=== PATIENT | female | born 1960 | race Caucasian/White ===

== ENCOUNTER 2019-02-01 19:10 | Emergency (ER) | payer BC ==
[~2019-02-01] VITALS: Ht 170.2 cm; Wt 92.1 kg
[~2019-02-01 19:10] MED LIST: ALPR.5 PO; ALPR1 PO; CYCL10 PO; GLIP2.5ER PO; HYDACE10B PO; HYDACE5 PO; JOINT HEALTH T1 EACH; KRILL OIL 1,001 EAC1 PO; LORA1 PO; METF500C PO; METO100ER PO; NAPR500EC PO; Norco 10-325 T1 EACH PO; QUIN10; RXPROACE PO; SERT50 PO; Simvastatin20 MG PO; Vitamin D400 UNI1
== END 2019-02-01 20:55 | disposition home or self-care (01) ==
LOC: ER 19:10
DX: S93.402A Sprain of unspecified ligament of left ankle, initial encounter (principal); G43.909 Migraine, unspecified, not intractable, without status migrainosus; Z88.5 Allergy status to narcotic agent; Z79.899 Other long term (current) drug therapy; Z79.84 Long term (current) use of oral hypoglycemic drugs; W18.30XA Fall on same level, unspecified, initial encounter
CPT/HCPCS: 29125; 73610; 73630; 99283-25; L1906

== ENCOUNTER → 2023-02-06 | Outpatient (CLI) | payer BC ==
[~2023-02-06] MED LIST changes: +FENO160 PO; +LEVSOD25 PO; +ONDA4 PO; +PIOG30 PO; +TRULICITY1.5 MG/0.5 SC
[2023-02-06 13:40] LABS: BASOPHILS ABSOLUTE AUTO 0.01 K/mm3 (0.00-0.23); BASOPHILS PERCENT AUTO 0 % (0-2); EOSINOPHILS ABSOLUTE AUTO 0.06 K/mm3 (0.00-0.68); EOSINOPHILS PERCENT AUTO 1 % (0-6); Hematocrit 43.7 % (33.0-51.0); Hemoglobin 15.1 g/dL (11.5-16.0); IMMATURE GRAN ABSOLUTE AUTO 0.03 K/mm3 (0.00-0.10); IMMATURE GRAN PERCENT AUTO 0 % (0-1); LYMPHOCYTES ABSOLUTE AUTO 1.35 K/mm3 (0.84-5.20); LYMPHOCYTES PERCENT AUTO 16 % (21-46); MONOCYTES ABSOLUTE AUTO 0.71 K/mm3 (0.16-1.47); MONOCYTES PERCENT AUTO 9 % (4-13); Mean Corpuscular HGB 31.1 pg (26.0-34.0); Mean Corpuscular HGB Conc 34.6 g/dL (31.5-36.5); Mean Corpuscular Volume 90 fL (80-100); Mean Platelet Volume 9.5 fL (9.1-12.4); NEUTROPHILS ABSOLUTE AUTO 6.24 K/mm3 (1.96-9.15); NEUTROPHILS PERCENT AUTO 74 % (41-73); Platelet Count 377 K/mm3 (150-400); RDW Coefficient Variation 12.2 % (11.7-14.2); RDW Standard Deviation 39.9 fL (35.1-46.3); Red Blood Cell Count 4.85 M/mm3 (3.80-5.20)
[2023-02-06 13:51] LABS: Albumin, Blood 4.3 g/dL (3.4-5.0); Albumin/Globulin Ratio 1.5 (0.8-1.8); Bilirubin, Total 0.8 mg/dL (0.1-1.0); Bun/Creatinine Ratio 7.9 (12.0-20.0); Calcium, Blood 9.2 mg/dL (8.5-10.1); Creatinine, Blood 1.01 mg/dL (0.40-1.00); Globulin, Blood 2.9 g/dL (2.2-4.0); Potassium, Blood 4.3 mmol/L (3.5-5.5); Total Protein, Blood 7.2 g/dL (6.4-8.2)
== END ==
LOC: LAB SHORT 13:35 → LAB 13:35
PROVIDERS: Emergency Medicine
DX: R11.2 Nausea with vomiting, unspecified (principal)
CPT/HCPCS: 80053; 83690; 85025

== ENCOUNTER → 2023-04-22 | Outpatient (CLI) | payer BC ==
[2023-04-22 17:15] LABS: Adenovirus F 40/41 Not Detected (NOT DETECT); Campylobacter Sp Not Detected (NOT DETECT); Cryptosporidium Not Detected (NOT DETECT); Cyclospora Cayetanensis Not Detected (NOT DETECT); E. Coli O157 Not Detected (NOT DETECT); Entamoeba Histolytica Not Detected (NOT DETECT); Enteroaggregative E. coli-EAEC Not Detected (NOT DETECT); Enteropathogenic E. coli-EPEC Not Detected (NOT DETECT); Enterotoxigenic E. coli-ETEC Not Detected (NOT DETECT); Giardia Lamblia Not Detected (NOT DETECT); Plesiomonas Shigelloides Not Detected (NOT DETECT); Salmonella Sp Not Detected (NOT DETECT); Shiga Toxin-prod E. coli-STEC Not Detected (NOT DETECT); Shigella/Enteroin E. coli-EIEC Not Detected (NOT DETECT); Vibrio Cholerae Not Detected (NOT DETECT); Vibrio Sp Not Detected (NOT DETECT); Yersinia Enterocolitica Not Detected (NOT DETECT)
[2023-04-23 07:36] LABS: Astrovirus Not Detected (NOT DETECT); Norovirus GI/GII Not Detected (NOT DETECT); Rotavirus A Not Detected (NOT DETECT); Sapovirus Not Detected (NOT DETECT)
[2023-04-25 05:59] LABS: CALPROTECTIN,FECAL 11 ug/g (<=49)
== END ==
LOC: LAB SHORT 13:53 → LAB 13:53
PROVIDERS: Hospitalist
DX: R19.7 Diarrhea, unspecified (principal)
CPT/HCPCS: 83993; 87507

== ENCOUNTER 2023-12-01 09:22 | Day surgery (SDC) | payer BC ==
[~2023-12-01] VITALS: Ht 170.2 cm; Wt 93.1 kg
[~2023-12-01 09:22] MED LIST changes: +Lactated Ringer's 1,000 ML IV ONE; +propofoL 50 ML IV ONE
[2023-12-01] MEDS ORDERED: FISH OIL 1,0001 EA10 (09:47)
[2023-12-01] MEDS ORDERED: Lactated Ringer's 1,000 ML IV ONE (10:33)
[2023-12-01] MEDS ORDERED: RIZATRIPTAN1014 PO (10:47)
[2023-12-01] MEDS ORDERED: PANTOPRAZOLE SO40 M2 PO (10:47)
[2023-12-01] MEDS ORDERED: Cyclobenzaprine10 MG PO (10:50)
[2023-12-01] MEDS ORDERED: OLMESARTAN MEDO20 MG PO (10:51)
[2023-12-01] MEDS ORDERED: Ondansetron HCl 2 MG / ML 2ML Vial ONE (11:58)
[2023-12-01] MEDS ORDERED: FentaNYL Citrate 50 MCG/ML 2 ML Injection ONE (12:11)
[2023-12-01 12:33] VITALS: BP 160/79
== END 2023-12-01 12:50 | disposition home or self-care (01) ==
LOC: ORSCSDS 09:22
PROVIDERS: Internal Medicine Gastroenterology
PROC: 0DJ08ZZ Inspection of Upper Intestinal Tract, Via Natural or Artificial Opening Endoscopic (ICD-10-PCS; principal; 2023-12-01 10:30)
PROC: 0DJD8ZZ Inspection of Lower Intestinal Tract, Via Natural or Artificial Opening Endoscopic (ICD-10-PCS; principal; 2023-12-01 10:30)
DX: K21.9 Gastro-esophageal reflux disease without esophagitis (principal); R13.10 Dysphagia, unspecified; R10.30 Lower abdominal pain, unspecified; Z86.010 Personal history of colon polyps; K62.89 Other specified diseases of anus and rectum; E11.9 Type 2 diabetes mellitus without complications; I10 Essential (primary) hypertension; E78.00 Pure hypercholesterolemia, unspecified; Z79.899 Other long term (current) drug therapy; Z79.84 Long term (current) use of oral hypoglycemic drugs
CPT/HCPCS: 82947; J2405; J2704; J3010; J7120